=== PATIENT | male | born 1935 | race Caucasian/White ===

== ENCOUNTER → 2017-01-14 | Outpatient (CLI) | payer MEDICARE ==
--- NOTE | 2017-01-15 13:32 | PCVCIMAG ---
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 2D Dimensions IVSd: 12.23 (7-11mm)LVOT Diam: 24.73 (18-24mm) LVDd: 57.69 mm PWd: 7.62 (7-11mm)Ascending Ao: 32.18 (22-36mm) LVDs: 52.66 (25-40mm) Left Atrium: 42.24 (27-40mm) Aortic Root: 28.84 mm LV Single Plane 4CH: 36.73 % LV Single Plane 2CH: 39.83 %Alcantara's LVEF: 38.28 % Biplane EF: 36.0 % Volumes Left Atrial Volume (Systole) Single Plane 4CH: 76.25 mLSingle Plane 2CH: 54.99 mL LA ESV Index: 34.00 mL/m2 Aortic Valve AoV Peak Hossein.: 0.80 m/s AO Peak Gr.: 2.72 mmHgLVOT Max P.62 mmHg LVOT Max V: 0.58 m/s JYOTI Vmax: 3.47 cm2 AI Vmax: 2.89 m/s AI [place]: 1.43 m/s2 AI PHT: 604.05 ms Mitral Valve MV E Max Hossein.: 1.11 m/s MV PHT: 40.60 ms MVA (PHT): 5.42 cm2 IVRT: 41.52 ms TDI E/Lateral E': 13.88E/Medial E': 18.50 Medial E' Hossein.: 0.06 m/s Lateral E' Hossein.: 0.08 m/s Pulmonary Valve PV Peak Hossein.: 0.58 m/sPV Peak Gr.: 1.33 mmHg Pulmonary Vein P Vein D: 0.98 m/s Tricuspid Valve TR Peak Hossein.: 2.53 m/s TR Peak Gr.: 25.63 mmHg TV Vmax: 0.85 m/s Left Ventricle The left ventricle is normal size.Inferolateral hypokinesis and thinning. Global mild hypokinesis. There is normal LV segmental wall motion. Sigmoid septum is present. Asymetric septal hypertrophy. Left ventricular systolic function is normal. The left ventricular ejection fraction is within the normal range. LVEF is 35-40%. The left ventricular diastolic function is normal. Right Ventricle The right ventricle is normal size. The right ventricular systolic function is normal. Atria Left atrium is at the upper limits of normal. The right atrium size is normal. Aortic Valve Aortic valve is thickened but has adequate excursion. Mild aortic regurgitation. There is no aortic valvular stenosis. Mitral Valve The mitral valve is normal in structure. Mild to moderate mitral regurgitation. No evidence of mitral valve stenosis. Tricuspid Valve The tricuspid valve is normal in structure. Trace to mild tricuspid regurgitation with a PA pressure of 32mmHg. Pulmonic Valve The pulmonary valve is normal in structure. Moderate pulmonic regurgitation. Great Vessels The aortic root is normal in size. The ascending aorta is normal in size. IVC is normal in size and collapses >50% with inspiration. The pulmonary artery is normal. Pericardium There is no pericardial effusion. <Conclusion> The left ventricle is normal size.Inferolateral hypokinesis and thinning. Global mild hypokinesis. Sigmoid septum is present. Asymetric septal hypertrophy. Left ventricular systolic function is normal. The left ventricular ejection fraction is within the normal range. LVEF is 35-40%. The left ventricular diastolic function is normal. The right ventricle is normal size. Left atrium is at the upper limits of normal. Mild aortic regurgitation. The mitral valve is normal in structure. Mild to moderate mitral regurgitation. There is no pericardial effusion. Trace to mild tricuspid regurgitation with a PA pressure of 32mmHg.
== END | disposition home or self-care (01) ==
LOC: PCVCIMAG 14:24
PROVIDERS: ATTEND Internal Medicine Cardiovascular Disease
DX: I08.3 Combined rheumatic disorders of mitral, aortic and tricuspid valves (principal); I11.0 Hypertensive heart disease with heart failure; I50.20 Unspecified systolic (congestive) heart failure; I25.10 Atherosclerotic heart disease of native coronary artery without angina pectoris; E78.00 Pure hypercholesterolemia, unspecified; R06.09 Other forms of dyspnea; R05 Cough; R60.0 Localized edema; I48.91 Unspecified atrial fibrillation; Z95.1 Presence of aortocoronary bypass graft
CPT/HCPCS: 80061; 93306

== ENCOUNTER → 2017-01-23 | Outpatient (CLI) | payer MEDICARE | END | disposition home or self-care (01) | LOC: PCVCCLINIC 12:50 | PROVIDERS: ATTEND Internal Medicine Cardiovascular Disease | DX: I45.10 Unspecified right bundle-branch block (principal); I11.0 Hypertensive heart disease with heart failure; I50.20 Unspecified systolic (congestive) heart failure; I48.2 Chronic atrial fibrillation; E78.00 Pure hypercholesterolemia, unspecified; I25.10 Atherosclerotic heart disease of native coronary artery without angina pectoris; I71.4 Abdominal aortic aneurysm, without rupture; Z96.653 Presence of artificial knee joint, bilateral; Z95.1 Presence of aortocoronary bypass graft; Z87.891 Personal history of nicotine dependence; Z88.0 Allergy status to penicillin; Z88.8 Allergy status to other drugs, medicaments and biological substances; Z79.899 Other long term (current) drug therapy | CPT/HCPCS: 36415; 93005; G0463 ==

== ENCOUNTER → 2017-04-25 | Outpatient (CLI) | payer MEDICARE | END | disposition home or self-care (01) | LOC: PCVCCLINIC 10:06 | PROVIDERS: ATTEND Internal Medicine Cardiovascular Disease | DX: I25.10 Atherosclerotic heart disease of native coronary artery without angina pectoris (principal); I10 Essential (primary) hypertension; E78.00 Pure hypercholesterolemia, unspecified; R94.31 Abnormal electrocardiogram [ECG] [EKG]; G47.33 Obstructive sleep apnea (adult) (pediatric); I45.10 Unspecified right bundle-branch block; Z95.1 Presence of aortocoronary bypass graft; Z87.891 Personal history of nicotine dependence; Z79.82 Long term (current) use of aspirin; Z79.899 Other long term (current) drug therapy | CPT/HCPCS: 80061; 93005; G0463 ==

== ENCOUNTER → 2017-09-25 | Outpatient (CLI) | payer MEDICARE | END | disposition home or self-care (01) | LOC: PCVCCLINIC 14:59 | DX: I25.10 Atherosclerotic heart disease of native coronary artery without angina pectoris (principal); E78.00 Pure hypercholesterolemia, unspecified | CPT/HCPCS: 36415 ==